=== PATIENT | female | born 1965 | race Caucasian/White ===

== ENCOUNTER → 2024-10-19 06:28 | Day surgery (SDC) | payer BC, SELFPAY | LOC: GI 06:28 | PROVIDERS: ATTENDING PHYSICIAN Internal Medicine; FAMILY PHYSICIAN Nurse Practitioner | DX: Z12.11 Encounter for screening for malignant neoplasm of colon (principal); K62.89 Other specified diseases of anus and rectum; D12.3 Benign neoplasm of transverse colon | CPT/HCPCS: 45385; 88305 ==

== ENCOUNTER → 2024-11-09 13:25 | Outpatient (REF) | payer BC, SELFPAY | LOC: WDC 13:25 | PROVIDERS: ATTENDING PHYSICIAN Nurse Practitioner | DX: Z12.31 Encounter for screening mammogram for malignant neoplasm of breast (principal) | CPT/HCPCS: 77063; 77067 ==

== ENCOUNTER → 2024-11-18 09:47 | Outpatient (REF) | payer BC, SELFPAY | LOC: WDC 09:47 | PROVIDERS: ATTENDING PHYSICIAN Nurse Practitioner | DX: R92.8 Other abnormal and inconclusive findings on diagnostic imaging of breast (principal) | CPT/HCPCS: 76642 ==

== ENCOUNTER → 2024-12-07 17:17 | Outpatient (REF) | payer BC, SELFPAY | LOC: RCS 17:17 | PROVIDERS: ATTENDING PHYSICIAN Nurse Practitioner | DX: I31.39 Other pericardial effusion (noninflammatory) (principal); Z82.49 Family history of ischemic heart disease and other diseases of the circulatory system | CPT/HCPCS: 93306 ==